=== PATIENT | female | born 1995 | race African-American/Black ===

== ENCOUNTER 2016-10-29 16:38 | Emergency (ER) ==
[2016-10-29 16:55] VITALS: BP 150/86
[2016-10-29 17:22] LABS: BASO% 0.2 % (0.0-0.8); EOS# 0.21 X1000 (0.0-0.7); EOS% 2.5 % (0.0-10.0); HEMATOCRIT 36.3 % (37.0-47.0); HEMOGLOBIN 13.3 g/dL (12.0-16.0); IMM GRAN# 0.01 X1000 (0.0-0.04); IMM GRAN% 0.1 % (0.0-0.5); LYMPH# 2.84 X1000 (1.2-3.4); LYMPH% 33.5 % (20.5-51.1); MANUAL DIFF NEEDED? NO; MCH 29.2 PG (27-31); MCHC 36.6 g/dL (33-37); MCV 79.6 FL (81-99); MONO# 0.66 X1000 (0.11-0.59); MONO% 7.8 % (1.7-9.3); MPV 9.6 FL (7.4-10.4); NEUT% 55.9 % (42.2-75.2); PLT 270 X1000 (130-400); RBC 4.56 XMIL (4.2-5.4)
--- NOTE | 2016-10-29 17:27 | PROVIDER DOCUMENTATION ---
HPI-Female /OB/Breast - General Source: reports: patient - History of Present Illness-Female /OB Does patient report she is ?: No Location of complaint: reports: vaginal Radiation: reports: none Quality of Pain: reports: aching Severity in ED: reports: mild Onset/Duration: reports: 1 week ago Timing: reports: still present, intermittent Context/Activities at Onset: reports: light activity Vaginal Symptoms: reports: abnormal bleeding Vaginal Bleeding Amount: Large/Heavy Urinary Symptoms: reports: no symptoms Related Symptoms: reports: no symptoms Leakage of Fluid: none Contraception: reports: none Modifying Factors: improves with: nothing Associated Symptoms: reports: back/neck pain (back pain) Similar Symptoms Previously?: Yes Recently seen or treated by another doctor?: No <Shannan Bailey - Last Filed: 10/29/16 17:23> <Tito Cheung - Last Filed: 10/29/16 17:42> - General Chief Complaint: Female Stated Complaint: WEAK/DIZZY Time Seen by Provider: 10/29/16 17:01 Allergies/Adverse Reactions: Patient Allergies Allergy/AdvReac Type Severity Reaction Status Date / Time No Known Allergies Allergy Verified 05/08/16 23:02 Home Medications: Home Medication List Medication Instructions Recorded Confirmed Last Taken Type Pnv95/Iron Fum/Folic Acid 1 each PO DAILY 05/08/16 09/26/16 09/26/16 09:00 History [ Caplet] Ibuprofen [Motrin] 800 mg PO Q8H PRN PRN #0 tablet 09/29/16 Unknown Rx Oxycodone/APAP 5 mg/325 mg 1 each PO Q3-4H PRN PRN #30 tablet 09/29/16 Unknown Rx [Percocet-5] - History of Present Illness-Female /OB Nature of Presenting Problem: Pt is 21 y/o F presents to the ED with vaginal bleeding. Pt states she is 4 weeks . Pt states starting her period on the 6th and it is getting heavier over time. Pt states back pain. (Shannan Bailey) Review of Systems - Adult - REVIEW OF SYSTEMS - ADULT Constitutional: reports: no symptoms reported Eyes: reports: no symptoms reported Ears, Nose, Mouth & Throat: reports: no symptoms reported Cardiovascular: reports: no symptoms reported Respiratory: reports: no symptoms reported Gastrointestinal: reports: no symptoms reported Genitourinary: reports: no symptoms reported Musculoskeletal: reports: back pain. denies: bone pain, joint pain, neck pain Integumentary: reports: no symptoms reported Neurological: reports: no symptoms reported Psychiatric: reports: no symptoms reported Endocrine: reports: no symptoms reported Hematologic/Lymphatic: reports: no symptoms reported Allergic/Immunologic: reports: no symptoms reported All Other Systems: Reviewed and Negative <Shannan Bailey - Last Filed: 10/29/16 17:23> Past History - Adult - PAST MEDICAL HISTORY-ADULT Review of Records: reports: Nursing Assessment Review, Medications Reviewed, Social history reviewed & non-contributory. Major Childhood Illnesses: reports: denies history Cardiovascular: reports: denies history Respiratory: reports: asthma Gastrointestinal: reports: denies history Obstetrical/Gynecological: reports: denies history Genitourinary: reports: denies history Musculoskeletal: reports: denies history Neurological: reports: denies history Endocrine/Immune: reports: denies history Other Conditions: reports: denies history - PRIOR SURGERIES/PROCEDURES Surgical/Procedure History: reports: - IMMUNIZATION STATUS Childhood Immunizations: See Nurse Assessment Flu Vaccine: See Nurse Assessment - FAMILY HISTORY Family History: reviewed, not pertinent - SOCIAL HISTORY Smoking: denies Substance Use: denies Living Situation: family <Shannan Bailey - Last Filed: 10/29/16 17:23> Physical Exam-General - PHYSICAL EXAM-ADULT Initial Vital Signs Reviewed: Yes - CONSTITUTIONAL General Appearance: appears well, alert, no apparent distress - EYES Eyes: PERRL/EOMI, pink conjunctivae, fundi clear, no AV nicking - HEAD, EARS, NOSE, MOUTH & THROAT HENMT: normocephalic/atraumatic, moist mucous membranes, normal ENT inspection, TMs normal, pharynx normal - NECK Neck: non-tender, full range of motion, supple, normal inspection - RESPIRATORY Respiratory: chest non-tender, lungs clear, normal breath sounds, no pleuratic chest pain, no respiratory distress, no accessory muscle use - CARDIOVASCULAR Cardiovascular: normal peripheral pulses, regular rate, rhythm, no edema, no gallop, no JVD, no murmur - GASTROINTESTINAL (ABDOMEN) Abdominal Exam: normal bowel sounds, non tender, soft, no organomegaly, no pulsatile mass - LYMPHATIC Lymphatic: no adenopathy - MUSCULOSKELETAL Back Exam: normal inspection, no CVA tenderness, no vertebral tenderness Extremity: normal range of motion, non-tender, normal gait, normal inspection, no pedal edema, no calf tenderness, normal capillary refill - SKIN Integumentary: normal color, normal turgor, warm/dry - NEUROLOGIC Neurologic: grossly normal - PSYCHIATRIC Psych/Mental Status: normal mood/affect, oriented x 3 <Shannan Bailey - Last Filed: 10/29/16 17:23> Progress <Shannan Bailey - Last Filed: 10/29/16 17:23> <Tito Cheung - Last Filed: 10/29/16 17:42> - PLAN OF CARE/RESULTS Progress/Plan/Lab Results: Discussed results and plan of care with patient. Patient agrees with plan and verbalizes understanding. Vital Signs Temp Pulse Resp BP Pulse Ox 10/29/16 16:51 98 F 81 18 150/86 99 No Known Allergies Allergy (Verified 05/08/16 23:02) Pnv95/Iron Fum/Folic Acid [ Caplet] 1 each PO DAILY 05/08/16 Ibuprofen [Motrin] 800 mg PO Q8H PRN PRN #0 tablet 09/29/16 Oxycodone/APAP 5 mg/325 mg [Percocet-5] 1 each PO Q3-4H PRN PRN #30 tablet 09/29 Laboratory 10/29/16 17:14 WBC 8.49 RBC 4.56 Hgb 13.3 Hct 36.3 L MCV 79.6 L MCH 29.2 MCHC 36.6 RDW Std Deviation 12.4 Plt Count 270 MPV 9.6 Immature Gran % (Auto) 0.1 Neut % (Auto) 55.9 Lymph % (Auto) 33.5 [place] % (Auto) 7.8 Eos % (Auto) 2.5 Baso % (Auto) 0.2 Immature Gran # (Auto) 0.01 Neut # (Auto) 4.75 Lymph # (Auto) 2.84 [place] # (Auto) 0.66 H Eos # (Auto) 0.21 Baso # (Auto) 0.02 Orders Category Date Time Status CBC WITH DIFF [HEME] Stat Lab 10/29/16 17:14 Completed CMP [COMPREHENSIVE METABOLIC PANEL] [CHEM] Stat Lab 10/29/16 17:14 Received Laboratory Tests 10/29/16 17:14 WBC 8.49 RBC 4.56 Hgb 13.3 Hct 36.3 L MCV 79.6 L MCH 29.2 MCHC 36.6 RDW Std Deviation 12.4 Plt Count 270 MPV 9.6 Immature Gran % (Auto) 0.1 Neut % (Auto) 55.9 Lymph % (Auto) 33.5 [place] % (Auto) 7.8 Eos % (Auto) 2.5 Baso % (Auto) 0.2 Immature Gran # (Auto) 0.01 Neut # (Auto) 4.75 Lymph # (Auto) 2.84 [place] # (Auto) 0.66 H Eos # (Auto) 0.21 Baso # (Auto) 0.02 (Tito Cheung) Departure <Shannan Bailey - Last Filed: 10/29/16 17:23> - Departure Time of Disposition Order: 17:41 Certified Medical Emergency: Emergent <Tito Cheung - Last Filed: 10/29/16 17:42> - Departure DIAGNOSIS: Abnormal menses Disposition: HOME 01 Condition: Stable Additional Instructions: Follow up with primary care physician Follow up with OB physician Return to ED for any concerns or worsening of symptoms ED Follow Up Instructions: You have been treated by a care provider in the Emergency Department. These instructions are being provided to you so you can have an understanding of how to care for yourself upon discharge. Upon discharge from the Emergency Department, you are responsible for making arrangements for follow-up care by a physician of your choice. Take all prescribed medications as directed. Return to the Emergency Department immediately for any new or worsening symptoms. You may call the Physician Referral phone number at [phone] to obtain a list of Physicians who are taking new patients. Attestation - Scribe Verification/Attestation Scribe:: Shannan Bailey Acting as Scribe for:: Tito Cheung Scribe documention review:: This chart was documented by a scribe and accurately reflects the service the provider performed and the decisions made by the provider. <Shannan Bailey - Last Filed: 10/29/16 17:23> - Physician/ FRANCISCO Attestation Patient care was provided by Advanced Practice Provider:: Yes Advanced Practice Provider:: Tito Cheung Advanced Practice Provider documentation review:: The Mid-level provider documentation, treatment plan and medical decision making was reviewed by the physician who agrees with all treatment and medical decision making by the MLP. <Tito Cheung - Last Filed: 10/29/16 17:42> Physician Attestation
[2016-10-29 17:46] LABS: AGAP 11; ALKALINE PHOSPHATASE 80 U/L (32-104); BUN 13 mg/dL (8-22); CHLORIDE 105 mmol/L (98-107); COSMO 279; GOT 22 U/L (10-30); GPT 16 U/L (10-36); POTASSIUM 3.2 mmol/L (3.5-5.1); SODIUM 140 mmol/L (136-145); TCO2 24 mmol/L (25-35); TOTAL PROTEIN 6.5 g/dL (6.3-8.3)
== END 2016-10-29 17:48 | disposition home or self-care (01) ==
LOC: P.ED 16:38
DX: O90.89 Other complications of the puerperium, not elsewhere classified (principal); N92.6 Irregular menstruation, unspecified; M54.9 Dorsalgia, unspecified
CPT/HCPCS: 80053; 85025

== ENCOUNTER 2018-09-03 04:56 | Inpatient (IN) ==
[2018-09-03] MEDS ORDERED: REGLAN PO PRN (05:00)
[2018-09-03] MEDS ORDERED: PITOCIN 30 UNITS/NS 30 UNIT/500 ML IV.SOLN IV SCH ×2 (05:00→15:15)
[2018-09-03] MEDS ORDERED: SODIUM CHLORIDE 0.9% INJ SCH (05:00)
[2018-09-03] MEDS ORDERED: PEPCID IV PRN (05:00)
[2018-09-03] MEDS ORDERED: AMPICILLIN 2 GM/NS 2 GM/100 ML IVPB IV ONE (05:00)
[2018-09-03] MEDS ORDERED: PEPCID PO PRN ×2 (05:00)
[2018-09-03] MEDS ORDERED: ZOFRAN IV PRN (05:00)
[2018-09-03] MEDS ORDERED: KEFZOL 1 GM/D5W 1 GM/50 ML IVPB IV PRN (05:00)
[2018-09-03] MEDS ORDERED: TYLENOL PO PRN (05:00)
[2018-09-03] MEDS ORDERED: STADOL IV PRN (05:00)
[2018-09-03] MEDS ORDERED: XYLOCAINE-MPF 1% INJ PRN ×2 (05:04→15:10)
[2018-09-03] MEDS ORDERED: MINERAL OIL TOP PRN (05:04)
[2018-09-03] MEDS: LR 1,000 ML IV SCH ×3 (05:23→11:13)
[2018-09-03 05:44] LABS: URINE SOURCE VOIDED
[2018-09-03 05:45] LABS: BASO# 0.02 X1000 (0.0-0.2); BASO% 0.2 % (0.0-0.8); EOS# 0.13 X1000 (0.0-0.7); EOS% 1.2 % (0.0-10.0); HEMATOCRIT 31.7 % (37.0-47.0); HEMOGLOBIN 11.4 g/dL (12.0-16.0); IMM GRAN# 0.05 X1000 (0.0-0.04); IMM GRAN% 0.5 % (0.0-0.5); LYMPH# 2.68 X1000 (1.2-3.4); LYMPH% 24.4 % (20.5-51.1); MCH 28.2 PG (27-31); MCV 78.5 FL (81-99); MONO# 0.81 X1000 (0.11-0.59); MONO% 7.4 % (1.7-9.3); MPV 9.6 FL (7.4-10.4); NEUT# 7.29 X1000 (1.4-6.5); NEUT% 66.3 % (42.2-75.2); PLT 263 X1000 (130-400); RBC 4.04 XMIL (4.2-5.4); RDW 12.5 % (11.5-14.5); WBC 10.98 X1000 (4.8-10.8)
[2018-09-03 06:06] LABS: BILIRUBIN URINE NEGATIVE (NEGATIVE); BLOOD URINE NEGATIVE (NEGATIVE); GLUCOSE URINE NEGATIVE (NEGATIVE); KETONE URINE NEGATIVE (NEGATIVE); LEUKOCYTES URINE TRACE (NEGATIVE); NITRITE URINE NEGATIVE (NEGATIVE); PROTEIN URINE NEGATIVE (NEGATIVE); UROBILINOGEN URINE NORMAL
[2018-09-03 06:07] LABS: COLOR YELLOW
[2018-09-03 06:08] LABS: CLARITY CLEAR (CLEAR)
[2018-09-03 06:13] LABS: UR AMPHETAMINES QUAL NONE DETECTED (NONE DETECT); UR BARBITUATES QUAL NONE DETECTED (NONE DETECT); UR BENZODIAZEPIN QUAL NONE DETECTED (NONE DETECT); UR CANNABINOIDS QUAL NONE DETECTED (NONE DETECT); UR COCAINE QUAL NONE DETECTED (NONE DETECT); UR METHADONE QUAL NONE DETECTED (NONE DETECT); UR METHAMPHETAMINE QUAL NONE DETECTED (NONE DETECT); UR OPIATES QUAL NONE DETECTED (NONE DETECT); UR OXYCODONE QUAL NONE DETECTED (NONE DETECT); UR PCP QUAL NONE DETECTED (NONE DETECT); UR PROPOXYPHENE QUAL NONE DETECTED (NONE DETECT); UR TCA QUAL NONE DETECTED (NONE DETECT)
--- NOTE | 2018-09-03 07:40 | HISTORY AND PHYSICAL ---
HISTORY OF PRESENT ILLNESS: The patient is a 22-year-old, black female, G5, P2 , A2, who is 41 weeks 0 days IUP, for induction. The patient's care was unremarkable. She did test positive for group B strep. PAST MEDICAL HISTORY: Significant for asthma, which she reports that she treats with albuterol 2 or 3 times a year. PAST SURGICAL HISTORY: D and C. PAST OB HISTORY: G5, P2, A2. Spontaneous vaginal delivery x2 , proven 7 pounds 9 ounces. She has had 1 spontaneous AB and 1 elective AB. 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 FAMILY HISTORY: Significant for diabetes mellitus, breast cancer, stomach cancer. SOCIAL HISTORY: Tobacco use: None. Alcohol use: None. MEDICATIONS: vitamins and iron. ALLERGIES: No known drug allergies. PHYSICAL EXAMINATION: VITAL SIGNS: Temp 97.1 degrees, blood pressure 107/62, pulse of 93, respirations 20. Height 5 feet 11 inches, weight 208 pounds. HEENT: Pupils equal, round, and reactive to light and accommodation. Extraocular movements intact. Oropharynx clear. NECK: Supple. No thyromegaly. LUNGS: Clear to auscultation. HEART: Regular rate and rhythm. ABDOMEN: Gravid, nontender. PELVIC: Cervix was 3 cm dilated, 50% effaced, and -2 station. Vertex presentation was confirmed. EXTREMITIES: No clubbing, cyanosis, or edema noted. NEUROLOGIC: Cranial nerves II through XII grossly intact. Motor 5/5. DTRs 2+ bilaterally. ASSESSMENT AND PLAN: A 22-year-old, black female, G5, P2, A2, at 41 and 0/7 weeks gestation with group B strep positive for induction due to post dates. The patient will be started on Pitocin. The patient may have epidural. Anticipate spontaneous vaginal delivery. She will receive group B strep prophylaxis during her labor course. cc: Frandy Pineda III, MD [facility]
[2018-09-03] MEDS ORDERED: NAROPIN 0.2% INJ ONE (08:15)
[2018-09-03] MEDS ORDERED: FENTANYL IV ONE (08:15)
[2018-09-03] MEDS ORDERED: FENTANYL-BUPIV-NS 2 MCG-0.1% 200 ML EPIDURAL SCH (09:00)
[2018-09-03] MEDS: AMPICILLIN 1 GM/NS 1 GM/50 ML IVPB IV SCH ×2 (10:20→14:35)
[2018-09-03] MEDS ORDERED: ATARAX PO PRN (15:10)
[2018-09-03] MEDS ORDERED: MINERAL OIL PO PRN (15:10)
[2018-09-03] MEDS ORDERED: M-M-R II VACCINE SUBQ ONE (15:10)
[2018-09-03] MEDS ORDERED: PERI MEDS (DERMOPLAST/NUPERCAINAL/TUCKS) MISC PRN (15:10)
[2018-09-03] MEDS ORDERED: NORCO-10 PO PRN (15:10)
[2018-09-03] MEDS ORDERED: HYDROXYZINE IM PRN (15:10)
[2018-09-03] MEDS ORDERED: BENADRYL PO PRN (15:10)
[2018-09-03] MEDS ORDERED: AMBIEN PO PRN (15:10)
[2018-09-03] MEDS ORDERED: PITOCIN IM PRN (15:10)
[2018-09-03] MEDS ORDERED: CYTOTEC PO PRN (15:10)
[2018-09-03] MEDS ORDERED: BENADRYL IV PRN (15:10)
[2018-09-03] MEDS ORDERED: BOOSTRIX VACCINE IM ONE (15:10)
[2018-09-03] MEDS ORDERED: PITOCIN 20 UNITS/NS 20 UNITS/1,000 ML IV.SOLN IV SCH (15:15)
[2018-09-03] MEDS: MOTRIN PO PRN (19:42)
[2018-09-03] MEDS: NORCO-5 PO PRN (19:42)
[2018-09-04] MEDS: PERICOLACE PO SCH ×2 (02:06→20:57)
[2018-09-04] MEDS: NORCO-5 PO PRN ×5 (05:08→20:57)
[2018-09-04] MEDS: MOTRIN PO PRN ×2 (05:08→15:52)
--- NOTE | 2018-09-04 05:35 | OPERATIVE NOTE ---
PROCEDURE DATE: 09/03/2018 The patient progressed to complete and pushing and had spontaneous vaginal delivery of a female infant, 7 pounds 0 ounces. Apgars of 9 and 10 at 1455 on 09/03/2018 over intact perineum. Placenta was delivered intact with 3-vessel cord. ESTIMATED BLOOD LOSS: 200 mL. ANESTHESIA: Epidural. cc: Frandy Pineda III, MD
[2018-09-04 06:41] LABS: BASO# 0.02 X1000 (0.0-0.2); BASO% 0.2 % (0.0-0.8); EOS# 0.11 X1000 (0.0-0.7); HEMATOCRIT 31.5 % (37.0-47.0); HEMOGLOBIN 11.2 g/dL (12.0-16.0); IMM GRAN# 0.04 X1000 (0.0-0.04); IMM GRAN% 0.4 % (0.0-0.5); LYMPH# 2.74 X1000 (1.2-3.4); LYMPH% 25.8 % (20.5-51.1); MCHC 35.6 g/dL (33-37); MCV 78.8 FL (81-99); MONO# 0.79 X1000 (0.11-0.59); MONO% 7.4 % (1.7-9.3); NEUT# 6.93 X1000 (1.4-6.5); NEUT% 65.2 % (42.2-75.2); PLT 269 X1000 (130-400); RDW 12.5 % (11.5-14.5); WBC 10.63 X1000 (4.8-10.8)
[2018-09-04] MEDS: PRECARE PO SCH (09:10)
--- NOTE | 2018-09-04 09:17 | OB/GYN PROGRESS NOTE ---
Progress Note OB - . OB Progress Note: Vital Signs - 24 hr 09/03/18 10:45 09/03/18 15:10 09/03/18 15:20 Temperature 97.6 F Pulse Rate 85 92 H 88 Respiratory Rate 20 20 20 Blood Pressure 118/69 Blood Pressure [Right Arm] 119/61 123/65 O2 Sat by Pulse Oximetry 100 100 100 09/03/18 15:30 09/03/18 15:40 09/03/18 15:50 Temperature Pulse Rate 89 90 93 H Respiratory Rate 18 20 20 Blood Pressure Blood Pressure [Right Arm] 128/71 129/75 114/66 O2 Sat by Pulse Oximetry 98 99 100 09/03/18 16:00 09/03/18 16:10 09/03/18 16:54 Temperature 98.4 F Pulse Rate 83 84 Respiratory Rate 20 18 Blood Pressure 119/61 119/61 Blood Pressure [Right Arm] 125/70 117/67 O2 Sat by Pulse Oximetry 100 96 09/03/18 19:30 09/03/18 22:00 09/04/18 05:10 Temperature 96.1 F L 96.5 F L 97.3 F L Pulse Rate 93 H 81 74 Respiratory Rate 18 18 18 Blood Pressure 124/75 123/69 126/91 Blood Pressure [Right Arm] O2 Sat by Pulse Oximetry 100 100 09/04/18 08:00 Temperature 97.4 F L Pulse Rate 66 Respiratory Rate 20 Blood Pressure 118/71 Blood Pressure [Right Arm] O2 Sat by Pulse Oximetry 100 Laboratory Results - last 24 hr 09/04/18 05:30 WBC 10.63 RBC 4.00 L Hgb 11.2 L Hct 31.5 L MCV 78.8 L MCH 28.0 MCHC 35.6 RDW Std Deviation 12.5 Plt Count 269 MPV 10.0 Immature Gran % (Auto) 0.4 Neut % (Auto) 65.2 Lymph % (Auto) 25.8 [place] % (Auto) 7.4 Eos % (Auto) 1.0 Baso % (Auto) 0.2 Immature Gran # (Auto) 0.04 Neut # (Auto) 6.93 H Lymph # (Auto) 2.74 [place] # (Auto) 0.79 H Eos # (Auto) 0.11 Baso # (Auto) 0.02 Patient reports lochia less than menses. she is bottle feeding with no problems. AFVSS General: AAOx3 in no apparent distress HEENT: NCAT CV: S1 S2 normal Lungs: clear Abd: fundus firm, below umbilicus. normal bowel sounds Ext: No edema noted a/P PPD#1 s/p doing well, continue current care Plan discharge home tomorrow
[2018-09-05] MEDS: MOTRIN PO PRN ×2 (00:06→09:08)
[2018-09-05] MEDS: NORCO-5 PO PRN ×4 (01:46→15:21)
[2018-09-05] MEDS: PRECARE PO SCH (09:08)
[2018-09-05 11:41] VITALS: BP 120/72
--- NOTE | 2018-09-06 08:38 | DISCHARGE SUMMARY ---
ADMISSION DATE: 09/03/2018 DISCHARGE DATE: 09/05/2018 ADMITTING DIAGNOSIS: Intrauterine at term. DISCHARGE DIAGNOSIS: Status post normal spontaneous vaginal delivery. HOSPITAL COURSE: Patient was admitted for induction of labor and was delivered via vaginal delivery of a live viable female infant, weighing 7 pounds 0 ounces with Apgars of 9 and 10 at one and five minutes respectively on 09/03/2018. The patient's postoperative course was unremarkable and patient is bottle feeding. The patient is being discharged home on 09/05 in stable condition. DISCHARGE EXAM: Patient without complaints this morning. Lochia is less than menses. The patient is afebrile. Vital signs are stable. General: Patient is awake, alert, oriented x3, in no apparent distress. HEENT: The patient is normocephalic, atraumatic. CV: S1, S2 are normal. Lungs: Clear. Abdomen: Fundus is firm, 2 cm below the umbilicus. Good bowel sounds. Extremities: No clubbing, no cyanosis, no edema noted. ASSESSMENT AND PLAN: day #2 status post normal spontaneous vaginal delivery. The patient doing well . The patient is being discharged home in stable condition to follow up with Dr. Pineda in 6 weeks. The patient is being sent home with Motrin and a few [place]'s for pain. cc: MD Frandy Romano III, MD [facility]
== END 2018-09-05 16:00 | disposition home or self-care (01) | DRG 807 ==
LOC: P.LD 04:56
PROVIDERS: ADMIT Obstetrics & Gynecology; ATTEND Obstetrics & Gynecology
CPT/HCPCS: 59025; 80104; 80301; 80305; 81003; 85025; 86592; A9270; G0431; G0434; G0477; J0290; J2590; J2795; J3010; J7120